=== PATIENT | female | born 1950 | race Caucasian/White ===

== ENCOUNTER 2022-11-10 11:07 | Outpatient (REF) | payer MEDICARE, SELFPAY ==
[2022-11-10 14:25] LABS: MANUAL DIFF FLAG NO
[2022-11-10 14:33] LABS: Basophils Percent Auto 0.4 % (0-2); Eosinophils Absolute Auto 0.3 X10*3/uL (0.0-0.4); Eosinophils Percent Auto 3.7 % (0-4); Hematocrit 39.5 % (37.0-47.0); Hemoglobin 12.6 g/dl (12.0-16.0); Imm Gran Pct Auto 1.4 % (0.0-0.4); Lymphocytes Absolute Auto 1.1 X10*3/uL (1.2-4.9); Lymphocytes Percent Auto 15.6 % (20-40); Mean Corpuscular HGB Conc 31.9 g/dl (31.0-35.0); Mean Corpuscular Hemoglobin 32.7 pg (27.0-33.0); Mean Corpuscular Volume 102.6 fL (80.0-98.0); Mean Platelet Volume 10.3 fL (9.4-12.3); Monocytes Absolute Auto 0.3 X10*3/uL (0.1-1.2); Monocytes Percent Auto 4.7 % (2-11); Neutrophils Absolute Auto 5.2 x10*3/uL (2.0-8.3); Neutrophils Percent Auto 74.2 % (45-73); Platelet Count 228 X10*3/uL (160-400); Red Blood Count 3.85 X10*6/uL (4.20-5.50); Red Cell Distribution Width 13.1 % (11.0-16.0)
[2022-11-10 15:29] LABS: Alanine Aminotransferase 27 U/L (0-31); Alkaline Phosphatase 86 U/L (39-117); Anion Gap 14 (12-20); Aspartate Amino Transferase 24 U/L (5-31); Bilirubin Total 0.4 mg/dL (0.0-1.0); Blood Urea Nitrogen 22 mg/dL (9-16); Calcium 10.1 mg/dL (8.4-10.2); Carbon Dioxide 22 mmol/L (22-29); Chloride 109 mmol/L (96-108); Cholesterol 226 mg/dL; Estimated Glomerular Filt Rate 38; Glucose Fasting 212 mg/dL (60-99); HDL Cholesterol 36 mg/dL; LDL Cholesterol Calculated 120 mg/dl; Potassium 4.7 mmol/L (3.3-5.1); Sodium 140 mmol/L (135-145); Total Protein 7.9 g/dL (6.5-8.0); Triglycerides 351 mg/dL
[2022-11-10 15:48] LABS: TSH reflex Free T4 1.68 uIU/mL (0.32-4.0); Vitamin D 25-OH Total 88.3 ng/mL (>30)
[2022-11-13 13:23] LABS: Absolute CD3 Count 735 cells/uL (840-3060); Absolute CD4 Count 321 cells/uL (490-1740); Absolute CD8 Count 412 cells/uL (180-1170); Absolute Lymphocytes 923 cells/uL (850-3900); CD4 CD8 Ratio 0.78 (0.86-5.00); Percent CD3 Cells 80 % (57-85); Percent CD4 Cells 35 % (30-61); Percent CD8 Cells 45 % (12-42)
[2022-11-14 14:07] LABS: HIV RNA PCR Qn Copies NOT DETECTED copies/mL (NOT DETECTED); HIV RNA PCR Qn Log Copies NOT DETECTED (NOT DETECTED)
== END 2022-11-10 11:08 | disposition home or self-care (01) ==
LOC: HO.CHCLDS 11:07
PROVIDERS: Visit Provider Internal Medicine
DX: B20 Human immunodeficiency virus [HIV] disease (principal)
CPT/HCPCS: 36415; 80053; 80061; 82306; 84443; 85025; 86359; 86360; 87536

== ENCOUNTER 2022-11-14 11:44 | Outpatient (REF) | payer MEDICARE, SELFPAY ==
[2022-11-14 15:02] LABS: Appearance Urine Clear; Color Urine Yellow; Glucose Urine UA >=1000 mg/dL (Negative); Leukocyte Esterase Urine Small (1+) (Negative); Nitrite Urine Positive (Negative); PH 5.5 (5.0-9.0); UMIC TRIGGER UA YES; Urine Blood Negative (Negative); Urine Ketones Trace mg/dL (Negative); Urine Protein Trace mg/dL (Neg-Trace)
[2022-11-14 15:05] LABS: Bacteria Urine 4+ (None Seen); Hyaline Casts Urine 0-2 /LPF (0-2); RBC Urine 0-2 /HPF (0-2); WBC Urine 21-50 /HPF (0-5)
== END 2022-11-14 11:45 | disposition home or self-care (01) ==
LOC: HO.CHCLNP 11:44
PROVIDERS: Visit Provider Internal Medicine
DX: Z13.89 Encounter for screening for other disorder (principal)
CPT/HCPCS: 81001; 81003

== ENCOUNTER 2023-06-22 13:18 | Outpatient (REF) | payer MEDICARE, SELFPAY ==
[2023-06-22 14:39] LABS: Basophils Percent Auto 0.3 % (0-2); Eosinophils Absolute Auto 0.2 X10*3/uL (0.0-0.4); Eosinophils Percent Auto 3.3 % (0-4); Hematocrit 35.9 % (37.0-47.0); Hemoglobin 11.6 g/dl (12.0-16.0); Imm Gran Abs Auto 0.05 X10*3/uL (0.00-0.03); Imm Gran Pct Auto 0.8 % (0.0-0.4); Lymphocytes Absolute Auto 1.2 X10*3/uL (1.2-4.9); Lymphocytes Percent Auto 17.6 % (20-40); MANUAL DIFF FLAG NO; Mean Corpuscular HGB Conc 32.3 g/dl (31.0-35.0); Mean Corpuscular Hemoglobin 33.6 pg (27.0-33.0); Mean Corpuscular Volume 104.1 fL (80.0-98.0); Mean Platelet Volume 9.8 fL (9.4-12.3); Monocytes Absolute Auto 0.3 X10*3/uL (0.1-1.2); Monocytes Percent Auto 4.5 % (2-11); Neutrophils Absolute Auto 4.9 x10*3/uL (2.0-8.3); Neutrophils Percent Auto 73.5 % (45-73); Platelet Count 218 X10*3/uL (160-400); Red Blood Count 3.45 X10*6/uL (4.20-5.50); Red Cell Distribution Width 13.8 % (11.0-16.0); White Blood Count 6.6 X10*3/uL (4.8-10.8)
[2023-06-22 15:01] LABS: Alanine Aminotransferase 17 U/L (0-31); Albumin Level 3.9 g/dL (3.5-5.0); Alkaline Phosphatase 83 U/L (39-117); Anion Gap 18 (12-20); Aspartate Amino Transferase 19 U/L (5-31); Bilirubin Total 0.5 mg/dL (0.0-1.0); Blood Urea Nitrogen 30 mg/dL (9-16); Calcium 9.2 mg/dL (8.4-10.2); Carbon Dioxide 21 mmol/L (22-29); Chloride 105 mmol/L (96-108); Estimated Glomerular Filt Rate 23; Glucose Random 210 mg/dL (60-115); Potassium 4.5 mmol/L (3.3-5.1); Sodium 139 mmol/L (135-145); Total Protein 7.6 g/dL (6.5-8.0)
[2023-06-23 11:58] LABS: Absolute CD3 Count 848 cells/uL (840-3060); Absolute CD4 Count 372 cells/uL (490-1740); Absolute CD8 Count 486 cells/uL (180-1170); Absolute Lymphocytes 1097 cells/uL (850-3900); CD4 CD8 Ratio 0.77 (0.86-5.00); Percent CD3 Cells 77 % (57-85); Percent CD4 Cells 34 % (30-61); Percent CD8 Cells 44 % (12-42)
[2023-06-23 15:33] LABS: HIV RNA PCR Qn Copies NOT DETECTED copies/mL (NOT DETECTED); HIV RNA PCR Qn Log Copies NOT DETECTED (NOT DETECTED)
[2023-06-25 04:00] LABS: Syphilis Screen Nonreactive (Nonreactive)
[2023-06-25 04:34] LABS: ~HepC Num1 0.16 S/CO (0.00-0.79); ~Hepatitis C Antibody Nonreactive (Nonreactive)
== END 2023-06-22 13:19 | disposition home or self-care (01) ==
LOC: HO.CHCLDS 13:18
PROVIDERS: Visit Provider Internal Medicine
DX: B20 Human immunodeficiency virus [HIV] disease (principal)
CPT/HCPCS: 36415; 80053; 85025; 86359; 86360; 86780; 86803; 87536

== ENCOUNTER 2024-01-18 15:02 | Outpatient (REF) | payer MEDICARE, SELFPAY ==
[2024-01-18 17:23] LABS: MANUAL DIFF FLAG NO
[2024-01-18 17:30] LABS: Basophils Percent Auto 0.3 % (0-2); Eosinophils Absolute Auto 0.3 X10*3/uL (0.0-0.4); Eosinophils Percent Auto 3.1 % (0-4); Hematocrit 38.6 % (37.0-47.0); Imm Gran Abs Auto 0.07 X10*3/uL (0.00-0.03); Imm Gran Pct Auto 0.8 % (0.0-0.4); Lymphocytes Absolute Auto 1.4 X10*3/uL (1.2-4.9); Lymphocytes Percent Auto 15.7 % (20-40); Mean Corpuscular HGB Conc 31.1 g/dl (31.0-35.0); Mean Corpuscular Hemoglobin 31.1 pg (27.0-33.0); Mean Platelet Volume 10.1 fL (9.4-12.3); Monocytes Absolute Auto 0.5 X10*3/uL (0.1-1.2); Neutrophils Absolute Auto 6.9 x10*3/uL (2.0-8.3); Neutrophils Percent Auto 75.1 % (45-73); Platelet Count 252 X10*3/uL (160-400); Red Blood Count 3.86 X10*6/uL (4.20-5.50); Red Cell Distribution Width 13.9 % (11.0-16.0); White Blood Count 9.1 X10*3/uL (4.8-10.8)
[2024-01-18 17:37] LABS: Alanine Aminotransferase 31 U/L (0-31); Albumin Level 4.6 g/dL (3.5-5.0); Alkaline Phosphatase 77 U/L (39-117); Anion Gap 19 (12-20); Aspartate Amino Transferase 32 U/L (5-31); Bilirubin Total 0.4 mg/dL (0.0-1.0); Blood Urea Nitrogen 23 mg/dL (9-16); Calcium 9.6 mg/dL (8.4-10.2); Carbon Dioxide 20 mmol/L (22-29); Chloride 108 mmol/L (96-108); Cholesterol 184 mg/dL (<200); Estimated Glomerular Filt Rate 24; Glucose Random 202 mg/dL (60-115); HDL Cholesterol 36 mg/dL (>40); LDL Cholesterol Calculated 78 mg/dL (<100); Potassium 5.2 mmol/L (3.3-5.1); Sodium 142 mmol/L (135-145); Total Protein 8.3 g/dL (6.5-8.0); Triglycerides 352 mg/dL (<150)
[2024-01-18 17:47] LABS: Reflex LDLD? No
[2024-01-19 14:53] LABS: HIV RNA PCR Qn Copies NOT DETECTED copies/mL (NOT DETECTED); HIV RNA PCR Qn Log Copies NOT DETECTED (NOT DETECTED)
[2024-01-20 04:20] LABS: HBS Num1 0.58 mIU/mL (0-7.99); HBc Num1 0.15 S/CO (0.00-0.79); HBsAGNum1 0.31 S/CO (0.00-0.99); Hepatitis A Antibody IgG REACTIVE (Nonreactive); Hepatitis B Core Antibody Nonreactive (Nonreactive); Hepatitis B Surface Antigen Negative (Negative); ~Hepatitis A Antibody IgG 11.65 S/CO (0.00-0.99); ~Hepatitis B Surface Antibody NONREACTIVE (Nonreactive)
[2024-01-21 01:04] LABS: TS Negative Control Passed; TS Panel A 0; TS Panel B 0; TS Positive Control Passed; TSpotTB Negative (Negative)
[2024-01-24 00:59] LABS: Absolute CD3 Count 980 cells/uL (840-3060); Absolute CD4 Count 394 cells/uL (490-1740); Absolute CD8 Count 610 cells/uL (180-1170); Absolute Lymphocytes 1255 cells/uL (850-3900); CD4 CD8 Ratio 0.65 (0.86-5.00); Percent CD3 Cells 78 % (57-85); Percent CD4 Cells 31 % (30-61); Percent CD8 Cells 49 % (12-42)
== END 2024-01-18 15:03 | disposition home or self-care (01) ==
LOC: HO.CHCLDS 15:02
PROVIDERS: Visit Provider Internal Medicine
DX: Z11.1 Encounter for screening for respiratory tuberculosis (principal); Z13.6 Encounter for screening for cardiovascular disorders; B20 Human immunodeficiency virus [HIV] disease
CPT/HCPCS: 36415; 80053; 80061; 85025; 86359; 86360; 86481; 86704; 86706; 86708; 87340; 87536

== ENCOUNTER 2024-07-24 12:17 | Outpatient (REF) | payer OTHER, SELFPAY ==
[2024-07-24 14:12] LABS: MANUAL DIFF FLAG NO
[2024-07-24 14:22] LABS: Basophils Percent Auto 0.4 % (0-2); Eosinophils Absolute Auto 0.4 X10*3/uL (0.0-0.4); Eosinophils Percent Auto 5.8 % (0-4); Hematocrit 35.4 % (37.0-47.0); Hemoglobin 10.9 g/dl (12.0-16.0); Imm Gran Abs Auto 0.05 X10*3/uL (0.00-0.03); Imm Gran Pct Auto 0.7 % (0.0-0.4); Lymphocytes Absolute Auto 1.4 X10*3/uL (1.2-4.9); Lymphocytes Percent Auto 19.6 % (20-40); Mean Corpuscular HGB Conc 30.8 g/dl (31.0-35.0); Mean Corpuscular Hemoglobin 29.3 pg (27.0-33.0); Mean Corpuscular Volume 95.2 fL (80.0-98.0); Mean Platelet Volume 10.2 fL (9.4-12.3); Monocytes Absolute Auto 0.4 X10*3/uL (0.1-1.2); Monocytes Percent Auto 5.6 % (2-11); Neutrophils Absolute Auto 4.7 x10*3/uL (2.0-8.3); Neutrophils Percent Auto 67.9 % (45-73); Platelet Count 259 X10*3/uL (160-400); Red Blood Count 3.72 X10*6/uL (4.20-5.50); Red Cell Distribution Width 13.9 % (11.0-16.0)
--- OUTSIDE RECORDS SUMMARY | 2024-07-24 14:35 | XMS_ITS | Clinical Summary ---
Author Organization [facility] Address [address] [place] [address] Care Team Providers Care Starchmaker Name Role Phone Unavailable Primary Care Provider Unavailabl e Source Comments PLEASE NOTE, if this patient is a minor, it may be UNLAWFUL to discuss sensitive information that is contained in these records (such as FAMILY PLANNING, MENTAL HEALTH or SUBSTANCE ABUSE) with the minor patient's parent or other person without the patient's specific authorization.[facility] Immunizations Immunization Administration Dates Next Due Moderna COVID-19 Vaccine, re d cap blue label, 12+ Primary Series 01/26/2021,12/29/2020 Social History Tobacco Use Types Packs/Day Years Used Date Smoking Tobacco: Never Assessed Social Connections Answer Date Recorded Social Connections and Isolation 0 12/29/2020 Financial Resource Strain Answer Date R ecorded Financial Resource Strain 0 2020 Stress Answer Date Recorded Stress 0 12/29/2020 Physical Activity Answer Date Recorded Physical Activity 0 12/29/2020 Food Insecurity Answer Date Recorded Food 0 12/29/2020 Transportation Needs Answer Date Record ed Transportation 0 12/29/2020 Housing Stability Answer Date Recorded Housing 0 12/29/2020 Safety and Environment Answer Date Mumtaz rded Safety 0 12/29/2020 Utilities Answer Date Recorded Utilities 0 12/29/2020 Employment Answer Date Recorded Employment 0 12/29/2020 Comments Unknown Sex and Gender Information Value Date Recorded Sex Assigned at Not on file Legal Sex Female 8:10 AM PDT Gender Identity Not on file Sexual Orientation Not on file Plan of Treatment Health Maintenance Due Date Last Done Comments Hepatitis C Screening 1950 Lipid Screening 1950 Tobacco Screening 1950 Hypertension Screening (#1) 1968 Medicare Annual Wellness Visit 1968 Imm-DTaP/Tdap/Td (1 - Tdap) 1969 Breast Cancer Screening (Mammogram) 1990 CT Colonography 06/25/1995 Colonoscopy 06/25/1995 Colorectal Cancer Screening 06/25/1995 FIT/gFOBT 06/25/1995 Fecal DNA 06/25/1995 Flexible Sigmoidoscopy 06/25/1995 Imm-Pneumococcal 65+ (1 of 1 - PCV) 2000 Imm-Zoster, Recombinant (1 of 2) 2000 Bone Density Screening 06/25/2015 Falls Prevention 06/25/2015 [id number] ( season) 2023 021, 12/29/2020 Imm-Influenza (#1) 2023 Alcohol and Drug Screen 04/02/2024 Depression Annual Screen 04/02/2024 Insurance [facility] Member Subscriber Plan / Payer (Ef fective 2020-Present) Name:Brittany Orellana I Relation to Subscriber:Self Name:Brittany Orellana I Payer ID:[id number] Group ID:Not on file Type:Indemnity Address: [place] [address] [address] [facility]
[2024-07-24 15:04] LABS: Folate 15.3 ng/mL (> or = 4.0); Vitamin B12 188 pg/mL (200-900)
[2024-07-24 15:16] LABS: Alanine Aminotransferase 32 U/L (0-31); Albumin Level 4.4 g/dL (3.5-5.0); Alkaline Phosphatase 81 U/L (39-117); Anion Gap 14 (12-20); Aspartate Amino Transferase 38 U/L (5-31); Bilirubin Direct 0.1 mg/dL (0.0-0.5); Bilirubin Total 0.4 mg/dL (0.0-1.0); Blood Urea Nitrogen 30 mg/dL (9-16); Calcium 9.8 mg/dL (8.4-10.2); Carbon Dioxide 22 mmol/L (22-29); Chloride 109 mmol/L (96-108); Estimated Glomerular Filt Rate 26; Glucose Fasting 163 mg/dL (60-99); Glucose Random 162 mg/dL (60-115); Potassium 4.5 mmol/L (3.3-5.1); Sodium 140 mmol/L (135-145); Total Protein 8.2 g/dL (6.5-8.0)
[2024-07-24 15:31] LABS: TSH reflex Free T4 2.12 uIU/mL (0.32-4.0); Vitamin D 25-OH Total 51.3 ng/mL (>30)
[2024-07-25 03:34] LABS: Syphilis Screen Nonreactive (Nonreactive)
[2024-07-25 03:52] LABS: ~HepC Num1 0.12 S/CO (0.00-0.79); ~Hepatitis C Antibody Nonreactive (Nonreactive)
[2024-07-26 14:58] LABS: HIV RNA PCR Qn Copies NOT DETECTED copies/mL (NOT DETECTED); HIV RNA PCR Qn Log Copies NOT DETECTED (NOT DETECTED)
[2024-07-29 17:59] LABS: Absolute CD3 Count 908 cells/uL (840-3060); Absolute CD4 Count 379 cells/uL (490-1740); Absolute CD8 Count 528 cells/uL (180-1170); Absolute Lymphocytes 1123 cells/uL (850-3900); CD4 CD8 Ratio 0.72 (0.86-5.00); Percent CD3 Cells 81 % (57-85); Percent CD4 Cells 34 % (30-61); Percent CD8 Cells 47 % (12-42)
== END 2024-07-24 12:18 | disposition home or self-care (01) ==
LOC: HO.CHCLDS 12:17
PROVIDERS: PCP Pediatrics; Referring Provider Internal Medicine; Visit Provider Pediatrics
DX: B20 Human immunodeficiency virus [HIV] disease (principal); E11.65 Type 2 diabetes mellitus with hyperglycemia; N18.31 Chronic kidney disease, stage 3a
CPT/HCPCS: 36415; 80048; 80053; 80076; 82248; 82306; 82607; 82746; 84443; 85025; 86359; 86360; 86780; 86803; 87536

== ENCOUNTER 2024-11-18 14:53 | Outpatient (REF) | payer OTHER, SELFPAY ==
--- OUTSIDE RECORDS SUMMARY | 2024-11-18 16:19 | XMS_ITS | Clinical Summary ---
Author Organization [facility] Address [address] [place] [address] Phone Care Team Providers Care Manager Retail Name Role Phone Charisse Pineda MD Primary Care Provider [phone] Allergies No known active allergies Medications Eliquis 5 MG tablet Take 5 mg by mouth 2 Active Aspirin Low Dose 81 MG EC tablet TOME YUMIKO TABLETA TODOS LOS D 2 Active carvedilol (COREG) 6.25 MG tablet TOME YUMIKO TABLETA DOS VECES AL D A 2 Active Tivicay 50 MG tablet TOME YUMIKO TABLETA TODOS LOS D 2 Active Trulicity 1.5 MG/0.5ML solution pen-injector INJECT 1 PEN BY SUBCUTANEOUS ROUTE EVERY WEEK 2 Active Descovy 200-25 MG tablet TOME YUMIKO TABLETA TODOS LOS D 2 Active NovoLOG FLEXPEN 100 UNIT/ML injection INJECT 10 UNITS SUBCUTANEOUSLY 3 TIMES DAILY 2 Active Melatonin Maximum Strength 5 MG tablet TOME YUMIKO TABLETA POR V A ORAL A DIARIO 30 MINUTOS ANTES DE ACOSTARSE 2 Active metFORMIN (GLUCOPHAGE) 1000 MG tablet Take 1,000 mg by mouth 2 Active mupirocin (BACTROBAN) 2 % ointment APPLY TOPICALLY KRISHNA VECES AL D A 2 Active mirtazapine (REMERON) 7.5 MG tablet TOME YUMIKO TABLETA TODOS LOS D AL ACOSTARSE 2 Active simvastatin (ZOCOR) 20 MG tablet Take 20 mg by mouth 1 (one) time each day in the evening 2 Active sulfamethoxazo le-trimethopri m 800-160 MG per tablet 2 Active tamsulosin (FLOMAX) 0.4 MG 24 hr capsule TOME YUMIKO C PSULA TODOS LOS D 2 Active traZODone (DESYREL) 100 MG tablet 2 Active acetaminophen- codeine (TYLENOL with CODEINE #3) 300-30 MG per tablet TOME YUMIKO TABLETA CADA [place] NECESARIO 2 Active Juluca 50-25 MG tablet Take 1 tablet by mouth 1 (one) time each day with breakfast 5 Active insulin glargine (LANTUS) 100 UNIT/ML injection Inject 100 mL under the skin every night Active Multiple Vitamin (multivitamin) tablet Take 1 tablet by mouth 1 (one) time each day Active dilTIAZem XR (DILACOR XR) 240 MG 24 hr capsule Take 240 mg by mouth 1 (one) time each day Active Active Problems Problem Noted Date Diagnosed Date Chronic kidney disease, stage 4 (severe) 025 Type 2 diabetes mellitus wit h diabetic chronic kidney disease 10/28/2024 Stage 3a chronic kidney disease 08/15/2021 Acute nontraumatic kidney injury 06/14/2021 Obstructive nephropathy 06/14/2021 Calculus of ureter 06/14/2021 Pyelonephritis 06/14/2021 Other specified sepsis 06/14/2021 Encounters Date Type Department Care Team Description 11/14/2024 Office Communication [facility] [address] [phone] Eleazar Vazquez MD 10/28/2024 1:30 PM EDT Office Visit [facility] [address] [phone] Eleazar Vazquez MD Chronic kidney disease, stage 4 (severe) (HCC) (Primary Dx); Type 2 diabetes mellitus with diabetic chronic kidney disease (HCC) from Last 3 Months Family History Medical History Relation Comments Cancer Father Diabetes Father Stroke Father Diabetes Mother Stroke Mother Relation Status Comments Father Mother Social History Tobacco Use Types Packs/Day Years Used Date Smoking Tobacco: Former Smokeless Tobacco: Never Alcohol Use Standard Drinks/Week Comments Never 0 (1 standard drink = 0.6 oz pur e alcohol) Comments Unknown Sex and Gender Information Value Date Recorded Sex Assigned at Not on file Legal Sex Female 12:52 PM EST Gender Identity Not on file Sexual Orientation Not on file Last Filed Vital Signs Vital Sign Reading Time Taken Comments Blood Pressure 142/60 10/28/2024 1:29 PM EDT Pulse 61 10/28/2024 1:29 PM EDT Temperature - - Respiratory Rate - - Oxygen Saturation 99% 10/28/2024 1:29 PM EDT Inhaled Oxygen Concentration - - Weight 68.5 kg (151 lb) 06/14/2021 9:55 AM EDT Height - - Body Mass Index - - Plan of Treatment Upcoming Encounters Date Type Department Care Team (Late st Contact Info) Description 12/10/2024 1:00 PM EDT Office Visit [facility] [address] [phone] Eleazar Vazquez MD [facility] [address] [phone] Health Maintenance Due Date Last Done Comments Breast Cancer Screening 1950 Colorectal Cancer Screening: Annual FOBT 06/25/1999 Colorectal Cancer Screening: Colonoscopy 06/25/1999 Colorectal Cancer Screening: Sigmoidoscopy 06/25/1999 Hepatitis B Vaccine (1 of 3 - Risk 3-dose series) 2010 Diabetes: Ophthalmology Exam 10/28/2024 Diabetes: Pedal Pulse Checked 10/28/2024 Diabetes: Sensory Foot Exam 10/28/2024 Diabetes: Visual Foot Exam 10/28/2024 Influenza Vaccine (#1) 2024 , 06/08/2023, 03/11/2019, Additional history exists Diabetes: Hemoglobin A1C 12/26/2024 09/25/2024, 09/01 Pneumococcal Vaccine: 50+ Years Completed 04/10/2024, 05/30/2018, 12/30/2017 Procedures Procedure Name Priority Date/Time Associated Diagnosis Comments ALT EXT LABS Routine 09/25/2024 from Last 3 Months Results * (ABNORMAL) ALT EXT LABS (09/25/2024) Hemoglobin A1C 7.7(A) 4.0 - 6.0 09/25/2024 us Historical Provider LAB BLOOD ORDERABLES Rupa l Result from Last 3 Months Insurance [facility] ([id number]) [place] [id number] Care Teams Manager Retail Relationship Specialty Start Date End Date Charisse Pineda MD [address] PCP - General Internal Medicine 06/14/21
--- OUTSIDE RECORDS SUMMARY | 2024-11-18 16:19 | XMS_ITS | Clinical Summary ---
Author Organization [facility] Address [address] [place] [address] Care Team Providers Care Bag Machine Helper Name Role Phone Unavailable Primary Care Provider [...] Fecal DNA 06/25/1995 Flexible Sigmoidoscopy 06/25/1995 Imm-Pneumococcal 50+ (1 of 1 - PCV) 2000 Imm-Zoster, Recombinant (1 of 2) 2000 Bone Density Screening 06/25/2015 Falls Prevention 06/25/2015 [id number] ( season) 12/02/202301/26/ 021, 12/29/2020 Alcohol and Drug Screen 04/02/2024 Depression Annual Screen 04/02/2024 Imm-Influenza (#1) 2024 Insurance [facility] [place] [facility]AEZA [facility]
[2024-11-18 18:48] LABS: Albumin Level 4.7 g/dL (3.5-5.0); Anion Gap 18 (12-20); Blood Urea Nitrogen 29 mg/dL (9-16); Calcium 9.6 mg/dL (8.4-10.2); Carbon Dioxide 21 mmol/L (22-29); Chloride 110 mmol/L (96-108); Estimated Glomerular Filt Rate 23; Magnesium 1.5 mg/dL (1.6-2.6); Potassium 4.6 mmol/L (3.3-5.1); Sodium 144 mmol/L (135-145)
[2024-11-18 19:06] LABS: Hematocrit 35.5 % (37.0-47.0); Hemoglobin 11.1 g/dl (12.0-16.0); Mean Corpuscular HGB Conc 31.3 g/dl (31.0-35.0); Mean Corpuscular Hemoglobin 29.8 pg (27.0-33.0); Mean Corpuscular Volume 95.2 fL (80.0-98.0); NRBC Abs Auto 0.000 X10*3/uL (0.0-0.012); NRBC Pct Auto 0.0 /100WBC (0.0-0.2); Platelet Count 283 X10*3/uL (160-400); Red Blood Count 3.73 X10*6/uL (4.20-5.50); White Blood Count 9.9 X10*3/uL (4.8-10.8)
[2024-11-18 19:07] LABS: Appearance Urine Clear; Glucose Urine UA Negative (Negative); PH 5.0 (5.0-9.0); Specific Gravity - Urine 1.010 (1.005-1.025); UMIC TRIGGER UA YES
[2024-11-18 19:15] LABS: Microalbum/Creatinine Ratio Ur 22.7 ug/mg cr (<30); Protein/Creatinine Ratio, Ur 0.21 (<0.2); Total Protein Urine Random 12 mg/dL (<12)
[2024-11-18 19:20] LABS: Parathyroid Hormone Intact 148.0 pg/mL (8.7-77.1)
[2024-11-19 08:34] LABS: HBS Num1 0.28 mIU/mL (0-7.99); HBc Num1 0.18 S/CO (0.00-0.79); HBsAGNum1 0.66 S/CO (0.00-0.99); Hepatitis B Surface Antigen Negative (Negative); ~HepC Num1 0.13 S/CO (0.00-0.79); ~Hepatitis B Surface Antibody NONREACTIVE (Nonreactive); ~Hepatitis C Antibody Nonreactive (Nonreactive)
[2024-11-19 09:04] LABS: Immunoglobulin M 215 mg/dL (50-300)
[2024-11-19 10:27] LABS: Kappa/Lambda Lt Ch Free Ratio 1.76 (0.26-1.65)
[2024-11-19 21:44] LABS: Prot Elec - Albumin 4.3 g/dL (3.8-4.8); Prot Elec - Alpha1 0.3 g/dL (0.2-0.3); Prot Elec - Alpha2 1.1 g/dL (0.5-0.9); Prot Elec - Beta 1 0.6 g/dL (0.4-0.6); Prot Elec - Beta 2 0.5 g/dL (0.2-0.5); Prot Elec - Gamma 1.4 g/dL (0.8-1.7); Prot Elec - Total Protein 8.3 g/dL (6.1-8.1)
[2024-11-21 10:54] LABS: Anti Nuclear Antibody Screen NEGATIVE (NEGATIVE)
== END 2024-11-18 14:54 | disposition home or self-care (01) ==
LOC: HO.CHCLDS 14:53
PROVIDERS: PCP Pediatrics; Visit Provider Internal Medicine Nephrology
DX: E11.22 Type 2 diabetes mellitus with diabetic chronic kidney disease (principal); N18.4 Chronic kidney disease, stage 4 (severe); Z11.59 Encounter for screening for other viral diseases
CPT/HCPCS: 36415; 80051; 81001; 82040; 82043; 82306; 82310; 82565; 82570; 82784; 83521; 83735; 83970; 84100; 84156; 84165; 84520; 85027; 86038; 86160; 86704; 86706; 86803; 87086; 87340